=== PATIENT | male | born 1970 | race Caucasian/White ===

== ENCOUNTER 2025-01-16 21:51 | Emergency (ER) | payer OTHER ==
[~2025-01-16] VITALS: Ht 190.5 cm; Wt 122.5 kg
[2025-01-16] MEDS ORDERED: LACTATED RINGER'S 1,000 ML IV ONE (22:30)
[2025-01-16 22:36] LABS: BASOPHILS 0.6 % (0.2-1.2); EOSINOPHILS 0.9 % (0.8-7.0); HEMATOCRIT 40.1 % (40.1-51.0); HEMOGLOBIN 14.6 g/dL (13.7-17.5); LYMPHOCYTES 8.4 % (21.8-53.1); MCH 31.1 PG (25.7-32.2); MCHC 36.4 g/dL (32.3-36.5); MCV 85.3 fL (79.0-92.2); MONOCYTES 10.5 % (5.3-12.2); NEUTROPHILS 78.3 % (34.0-67.9); PLATELET COUNT 198 K/uL (163-337)
[2025-01-16 22:50] LABS: ALBUMIN 4.3 g/dL (3.4-5.0); ALBUMIN/GLOBULIN RATIO 0.98 (1.1-2.4); ALCOHOL, MEDICAL <3 ng/dL (<3); ALKALINE PHOSPHATASE 95 U/L (46-116); ALT (SGPT) 37 U/L (14-59); ANION GAP 15.2 (7-21); AST (SGOT) 21 U/L (15-37); BILIRUBIN, TOTAL 0.9 mg/dL (0.2-1.0); BUN/CREATININE RATIO 30.39 (6.0-28.6); CALCIUM 9.7 mg/dL (8.5-10.1); CARBON DIOXIDE 25 mmol/L (21-32); CHLORIDE 89 mmol/L (98-107); CREATININE, SERUM 3.29 mg/dL (0.70-1.30); GLOMERULAR FILTRATION RATE,EST 21 mL/min (>60); POTASSIUM 3.2 mmol/L (3.5-5.1); PROTEIN, TOTAL 8.7 g/dL (6.4-8.2); UREA NITROGEN 100 mg/dL (7-18)
[2025-01-16 23:16] LABS: ABO B; ANTIBODY SCREEN NEGATIVE; RH POSITIVE
[2025-01-17] MEDS ORDERED: TRAMADOL HCL50 MG PO (00:41)
[2025-01-17] MEDS ORDERED: TRAMADOL HCL 50 MG HOME.PACK PO ONE (00:45)
[2025-01-17] MEDS ORDERED: HYDROCODONE BIT/ACETAMINOPHEN 5/325 MG 1 TAB HOME.PACK PO ONE (00:45)
[2025-01-17 00:51] LABS: AMPHETAMINES, URINE NEGATIVE (NEGATIVE); BARBITURATES, URINE NEGATIVE (NEGATIVE); BENZODIAZEPINE, URINE NEGATIVE (NEGATIVE); BUPRENORPHINE, URINE NEGATIVE (NEGATIVE); CANNABINOID, URINE NEGATIVE (NEGATIVE); COCAINE, URINE NEGATIVE (NEGATIVE); ECSTASY, URINE NEGATIVE (NEGATIVE); FENTANYL, URINE NEGATIVE (NEGATIVE); METHADONE, URINE NEGATIVE (NEGATIVE); OPIATES, URINE NEGATIVE (NEGATIVE); OXYCODONE, URINE NEGATIVE (NEGATIVE); PHENCYCLIDINE, URINE NEGATIVE (NEGATIVE)
[2025-01-17 01:12] VITALS: BP 163/102
--- NOTE | 2025-01-18 21:26 | EKG ---
[facility] [address] [facility] [place] [address] Signed Atrial fibrillation with rapid ventricular response Rightward axis Low voltage QRS Nonspecific T wave abnormality Abnormal ECG No previous ECGs available Confirmed by Shy Gallardo MD () on 01/18/2025 9:26:43 PM Electronically Signed By: SHY GALLARDO MD 01/18/252125 PATIENT NAME: SHY MERCADO Electrocardiogram DATE OF : 68 PHYSICIAN: SHY GALLARDO MD REPORT #: [id number] REPORT IS CONFIDENTIAL AND NOT TO BE RELEASED WITHOUT AUTHORIZATION
== END 2025-01-17 01:12 | disposition home or self-care (01) ==
LOC: ED 21:51
PROVIDERS: Family Medicine
DX: S06.9X9A Unspecified intracranial injury with loss of consciousness of unspecified duration, initial encounter (principal); S13.4XXA Sprain of ligaments of cervical spine, initial encounter; M54.50 Low back pain, unspecified; V49.9XXA Car occupant (driver) (passenger) injured in unspecified traffic accident, initial encounter
CPT/HCPCS: 36415; 70450; 71260; 72125; 74177; 80053; 80307; 85025; 86850; 86900; 86901; 93005; 93010; 94799; 96360; 99284-25; A9270; G0480; J7121; Q9967